=== PATIENT | male | born 1975 | race Caucasian/White ===

== ENCOUNTER 2022-03-25 11:13 | Emergency (ER) | payer OTHER ==
[~2022-03-25] VITALS: Ht 182.9 cm; Wt 106.8 kg
[2022-03-25 11:25] VITALS: BP 130/80
--- NOTE | 2022-03-25 11:36 | NUR ---
[facility] CONTACTED. INCIDENT #[id number].
[2022-03-25] MEDS ORDERED: SULF1TAB49 PO (13:17)
[2022-03-25] MEDS ORDERED: TETanus/Pertussis (Acell)/Diphther VAC/PF (Tdap-Adult) 0.5ml syringe IMVAC ONE (13:23)
[2022-03-25] MEDS ORDERED: bacitracin 15gm ointment TP ONE (13:24)
[2022-03-25] MEDS ORDERED: sulfamethoxazole/trimethoprim DS (800/160mg) tablet PO ONE (13:24)
[2022-03-25] MEDS ORDERED: LIDOcaine 1% 30ml preserv. free vial IJ ONE (13:25)
== END 2022-03-25 14:20 | disposition home or self-care (01) ==
LOC: ER 11:13
DX: S01.112A Laceration without foreign body of left eyelid and periocular area, initial encounter (principal); H11.32 Conjunctival hemorrhage, left eye; Y09 Assault by unspecified means; Y93.89 Activity, other specified; Y92.89 Other specified places as the place of occurrence of the external cause; Y99.8 Other external cause status
CPT/HCPCS: 12013; 90471; 90715; 99283; J7030; A6449